=== PATIENT | female | born 1950 | race Caucasian/White ===

== ENCOUNTER 2016-11-08 08:40 | Day surgery (SDC) | payer OTHER ==
[~2016-11-08] VITALS: Ht 157.5 cm; Wt 88.5 kg
[~2016-11-08 08:40] MED LIST: ADVIN25050 INH; ALBU1AER9 INH; AMT50 PO; ASPI81TA28 PO; CLR10 PO; CRS5 PO; DIPH25TA24 PO; FLUO10TA3 PO; FLUT0.15 NAE; LEVO88TA3 PO; LISI-461 PO; MONT1TAB3 PO; ONDA4TAB46 PO; PRLSR20 PO
[2016-11-08 09:11] VITALS: BP 125/65; PULSE 78; TEMP 36.9; O2SAT 95; Ht 157.5 cm; Wt 88.5 kg
[2016-11-08 09:20] LABS: HEMATOCRIT 42.4 % (37-47); MEAN CELL VOLUME 87.6 fL (80-100); MEAN CORPUSCULAR HEMOGLOBIN 29.5 pg (25-34); PLATELET COUNT 262 K/uL (130-400); RED BLOOD COUNT 4.84 M/uL (4.2-5.4); WHITE BLOOD COUNT 5.54 K/uL (4.8-10.8)
[2016-11-08 09:23] LABS: MEAN CORPUSCULAR HGB CONC 33.7 g/dl (32-36)
[2016-11-08 09:31] LABS: PROTHROMBIN TIME (PATIENT) 10.5 SECONDS (9.0-12.0)
--- NOTE | 2016-11-08 10:38 | Discharge Instructions ---
Discharge Instructions Procedure Procedure Date: Nov 08, 2016. Reason for visit: Elevated Liver Function. Discharge Discharge Date: Nov 08, 2016. Discharge Diagnosis: Elevated hepatic transaminases Instructions Activity Recommendations: 1 Day-May resume regular activity, 48 Hours of decreased exertion, 1 Day with no exercise/sex/sports, 1 Day with no driving/ machine use Return to School/Work: limitations (light activity x 48 hours) Recommended Home Diet: Resume Previous Diet Provider Instructions: US guided core liver biopsy is performed in the right hepatic lobe with 1 pass utilizing an 18 gauge core device with a 2 cm throw. The procedure was well tolerated and without immediate complication. ACTIVITY RECOMMENDATIONS: * Rest today. * Resume regular activity in one day. MEDICATIONS: * May take Tylenol or Ibuprofen as needed for pain. DIET: * Resume previous diet. SPECIAL CARE INSTRUCTIONS: Call your doctor if: * Temperature above 101 degrees F. * Pain not relieved by pain medicine ordered. * Increased drainage or redness from incision. * Notify your doctor with any questions or concerns. Call your doctor or go to the nearest Emergency Department if you experience: * Increased chest pain or shortness of breath. FOLLOW UP VISIT: Follow-up with Referring Physician as scheduled. Allergies Coded Allergies: Nut Tree (Verified Allergy, Severe, ANAPHYLAXIS, 11/08/16) Kiwi (Verified Adverse Reaction, Intermediate, burning/tongue swelling, ) Penicillins (Verified Adverse Reaction, Mild, NAUSEA, 11/08/16) [place] Recommendations: Call your doctor if: * Temperature above 101 degrees * Pain not relieved by pain medicine ordered * There is increased drainage or redness from any incision * You have any unanswered questions or concerns. Your Doctors Instructions noted above were prepared by provider Krishan Rudd. Patient Signature Section: Patient Instructions Signature Page Lis Calloway Patient (or Guardian) Signature/Date: I have read and understand the instructions given to me by my caregivers. Caregiver/RN/Doctor Signature/Date: The above-named patient and/or guardian has received patient instructions on this date. + Original Patient Signature Page (only) stays with chart. Please make copy for patient.
[2016-11-08 10:45] VITALS: BP 114/46; PULSE 73; TEMP 36.9; O2SAT 99
[2016-11-08] MEDS ORDERED: ACETAMINOPHEN 500 MG TAB PO PRN (10:45)
[2016-11-08 11:02] VITALS: BP 92/41; PULSE 67; O2SAT 95
[2016-11-08 11:19] VITALS: BP 113/41; PULSE 69; O2SAT 94
--- NOTE | 2016-11-08 11:24 | DIAGNOSTIC IMAGING REPORT ---
ULTRASOUND-GUIDED CORE BIOPSY OF THE LIVER CLINICAL HISTORY: Elevated hepatic transaminases.. COMPARISON STUDY: No priors. PROCEDURE: The risks, benefits, and alternatives to the procedure were discussed with the patient. Written informed consent was obtained. The patient was placed in a partial left lateral decubitus position in ultrasound, and a suitable window for biopsy in the right hepatic lobe was selected. The right abdomen was prepped and draped in the usual sterile fashion. 1% lidocaine was used for local anesthetic. A core biopsy of the liver was performed under ultrasound guidance with 1 pass utilizing an 18-gauge core biopsy device with a 2 cm throw. The specimen was submitted in formalin. The procedure was well tolerated and without immediate complication. The patient will be monitored in the medical treatment unit prior to discharge. IMPRESSION: Completed core biopsy of the right hepatic lobe as above. Electronically signed by: Krishan Rudd M.D. 11/08/2016 11:22 AM Dictated Date/Time: 11/08/2016 11:19 AM
[2016-11-08 11:39] VITALS: BP 111/60; PULSE 72; TEMP 37; O2SAT 96
[2016-11-08 12:25] VITALS: BP 114/56; PULSE 82; O2SAT 98
== END 2016-11-08 12:55 | disposition home or self-care (01) ==
LOC: C.ACU 08:40
PROVIDERS: ATTEND Internal Medicine Gastroenterology
DX: R94.5 Abnormal results of liver function studies (principal); K76.0 Fatty (change of) liver, not elsewhere classified

== ENCOUNTER 2017-05-17 04:13 | Emergency (ER) | payer OTHER ==
[~2017-05-17] VITALS: Ht 157.5 cm; Wt 85.3 kg
[~2017-05-17 04:13] MED LIST changes: -AMT50 PO
[2017-05-17 04:17] VITALS: TEMP 36.4; Ht 157.5 cm; Wt 85.3 kg
[2017-05-17] MEDS ORDERED: XYLOCAINE 1%/SOD BICARB 20 ML VIAL INFIL ONE (04:30)
--- NOTE | 2017-05-17 04:52 | EMERGENCY ROOM VISIT NOTE ---
ED Visit Note First contact with patient: 04:22 CHIEF COMPLAINT: Finger problem HISTORY OF PRESENT ILLNESS: This 66-year-old patient presents to the emergency department complaining of recurrent trigger finger to her left fourth finger. Patient has not been wearing her finger splint. She does not have a hand doctor. The patient rates the pain as throbbing and 6/10. The patient has limited range of motion of the finger. No numbness or tingling. No lacerations. No other injuries. The patient has not had previous fracture to this finger. The patient has taken nothing for the pain. No injury to the area. REVIEW OF SYSTEMS: A 6 system review of systems was completed with positives and pertinent negatives in the HPI. ALLERGIES: Kiwi, reviewed MEDICATIONS: Reviewed PMH:Medical Problems: (1) Asthma, mild persistent Status: Chronic (2) Depression Status: Chronic (3) Diabetes mellitus Status: Chronic (4) Hypertension Status: Chronic (5) KENZIE on CPAP Status: Chronic Surgical Problems: (1) Bilateral carpal tunnel syndrome Status: Resolved (2) History of back surgery Permanent Comment: lumbar decompression 1987 and 1997 Status: Resolved SOCIAL HISTORY: No drug use PHYSICAL EXAM: Vital Signs: Reviewed Nurse's notes, vital signs stable. GENERAL : Pleasant female, in no acute distress, but appears to be in pain, well- developed, well-nourished. MUSCULOSKELETAL: There is no deformity of the left fourth finger. The patient has limited flexion and extension of the left fourth finger secondary to trigger finger. No joint pain of the finger. There is no ligamentous instability. There is no laceration. Capillary refill less than 2 seconds. No tenderness of the remaining fingers or hand. Full range of motion of the wrist. NEURO: Alert and oriented to person, place, and time. Normal sensation to light and sharp touch. EMERGENCY DEPARTMENT COURSE: I examined the patient. Digital Block Indication: Trigger finger Verbal consent obtained. Risks and benefits were explained with the usual customary discussion. A time out was taken. The skin was prepped with Betadine. Using sterile technique, 2 mL's of lidocaine was injected into the base of the left fourth digit. No complications. The patient tolerated the procedure well. Once the finger was anesthetized, using gentle pressure the finger was extended back to normal position. The finger was immobiziled by finger splint under my direction and the position was satisfactory. Neurovascular status rechecked and intact. Patient was strongly encouraged to follow-up with the hand specialist as this is a recurrent problem for her. She is advised to wear the splint. She is advised to return to the ER mediate for severe pain, numbness, tingling, discoloration, worsening signs or symptoms or as needed. Patient tolerated procedure well. The patient was discharged home in good condition. DIAGNOSIS: Left fourth trigger finger DISCHARGE INSTRUCTIONS: Ibuprofen(Motrin, Advil) may be used for fever or pain. Use 600mg every six hours as needed. Take with food. Avoid using more than 2400mg in a 24 hour period. Do not use 2400mg per day for more than three consecutive days without physician direction. Prolonged inappropriate use can lead to stomach upset or ulcers. This medication can be taken if you need to drive, work, or perform activities which may be dangerous when taking narcotic pain medication. (AND/OR) Acetaminophen(Tylenol) may be used for fever or pain. Use 1000mg every six hours as needed. Avoid using more than 3000mg in a 24 hour period. This medication can be taken if you need to drive, work, or perform activities which may be dangerous when taking narcotic pain medication. Rest and elevate your injury. Do not get the splint wet. If your splint feels excessively tight, you have worsening pain, develop numbness or tingling, or your digits appear blue, loosen the jeison wrap. Then reapply the jeison wrap gently without removing the splint. If your symptoms are not quickly relieved return to the ER for re- evaluation. Continue current medications. Return to the ER immediately for any numbness, tingling, severe pain, extreme swelling in the extremity or as needed. Call Orthopedics Friday morning to arrange follow-up for your ongoing trigger finger problem. Problem List Medical Problems: (1) Asthma, mild persistent Status: Chronic (2) Depression Status: Chronic (3) Diabetes mellitus Status: Chronic (4) Hypertension Status: Chronic (5) KENZIE on CPAP Status: Chronic Surgical Problems: (1) Bilateral carpal tunnel syndrome Status: Resolved (2) History of back surgery Permanent Comment: lumbar decompression 1987 and 1997 Status: Resolved Current/Historical Medications Scheduled Albuterol (Proair Hfa), 2 PUFF INH Q4 Aspirin (Aspirin Ec), 81 MG PO DAILY Fluoxetine Hcl (Fluoxetine Hcl), 10 MG PO DAILY Fluticasone Prop/Salmeterol (Advair Diskus 250-50 Mcg/Dose), 1 PUFF INH BID Fluticasone Propionate (Nasal) (Flonase Allergy Relief), 50 MCG RAY DAILY Levothyroxine Sodium (Levothyroxine Sodium), 88 MCG PO DAILY Lisinopril (Lisinopril), 10 MG PO DAILY Montelukast Sodium (Singulair), 10 MG PO DAILY Omeprazole (Prilosec), 20 MG PO DAILY Rosuvastatin Calcium (Crestor), 5 MG PO DAILY Scheduled PRN Diphenhydramine Hcl (Benadryl), 50 MG PO for ALLERGIC REACTION Loratadine (Claritin), 10 MG PO DAILY PRN for ALLERGIC REACTION Ondansetron Hcl (Zofran), 4 MG PO Q6H PRN for Nausea Allergies Coded Allergies: Nut Tree (Verified Allergy, Severe, ANAPHYLAXIS, 05/17/17) Kiwi (Verified Adverse Reaction, Intermediate, burning/tongue swelling, 05/17/17) Penicillins (Verified Adverse Reaction, Mild, NAUSEA, 05/17/17) Vital Signs Date Time Temp Pulse Resp B/P (MAP) Pulse Ox O2 Delivery O2 Flow Rate FiO2 05/17/17 05:02 67 20 117/70 95 05/17/17 04:17 36.4 77 18 144/65 98 Room Air Departure Information Referrals Amy Gtz M.D. (PCP) Patient Instructions [facility]
[2017-05-17 05:02] VITALS: BP 117/70; PULSE 67; O2SAT 95
== END 2017-05-17 05:03 | disposition home or self-care (01) ==
LOC: C.EDB 04:14 → C.EDA 05:03
DX: M65.342 Trigger finger, left ring finger (principal); J45.909 Unspecified asthma, uncomplicated; E11.9 Type 2 diabetes mellitus without complications; I10 Essential (primary) hypertension; G56.03 Carpal tunnel syndrome, bilateral upper limbs; Z79.82 Long term (current) use of aspirin; Z91.018 Allergy to other foods; Z88.0 Allergy status to penicillin